=== PATIENT | male | born 1955 | race Caucasian/White ===

== ENCOUNTER → 2020-04-04 | Outpatient (CLI) | payer BC ==
--- NOTE | 2020-04-05 04:21 | CT ---
EXAMINATION TYPE: CT chest w con DATE OF EXAM: 04/04/2020 COMPARISON: No radiographic correlation available. HISTORY: 64-year-old male R91.8, ABN Xray. TECHNIQUE: Contiguous axial scanning of the chest after the administration of 100 mL of Isovue 300. Coronal/sagittal reconstructions performed. CT DLP: 503.80mGycm. Automatic exposure control utilized for a dose reduction. FINDINGS: Heart normal size with trace anterior basilar pericardial fluid. Borderline ectatic aortic root at 3.6 cm. Conventional arch vessel branching anatomy. Borderline to mildly enlarged caliber to the main right and left pulmonary arteries at 2.6 cm each ma y represent underlying pulmonary hypertension. No thoracic lymphadenopathy by CT size criteria. Trace bilateral gynecomastia. 4 mm subpleural pulmonary nodule posterior right upper lobe, axial image extending. Strandy bibasilar areas of atelectasis. No consolidation or pleural effusion. Visualized upper abdomen shows [id number] stool. Bones: No osseous destructive process. IMPRESSION: 1. Borderline to mildly enlarged caliber to the main right and left pulmonary arteries. Correlate for possible underlying pulmonary arterial hypertension. 2. A 4 mm pulmonary nodule on the right. 12 month follow-up CT can reassess. 3. Otherwise, no acute process seen. The exam can be reviewed with directed attention if the patient' s outside abnormal radiograph is made available.
== END | disposition home or self-care (01) ==
LOC: RADCTMAIN 15:51
PROVIDERS: ATTEND Family Medicine
DX: R91.1 Solitary pulmonary nodule (principal)
CPT/HCPCS: 71260; Q9967

== ENCOUNTER 2020-04-27 10:40 | Day surgery (SDC) | payer BC ==
[2020-04-24 15:35] VITALS: BMI 33.2
[~2020-04-27 10:40] MED LIST: LACTATED RINGERS 1,000 ML IV SCH
[2020-04-27] MEDS ORDERED: LIDOCAINE 1% (10MG/ML) FOR IV START INTRADERMA ONE (11:01)
[2020-04-27 11:14] VITALS: RESP 16; TEMP 97.6
[2020-04-27] MEDS ORDERED: PROPOFOL 10 MG/ML 20 ML VIAL IV ONE (12:22)
--- NOTE | 2020-04-27 12:25 | P.GSHP ---
History of Present Illness H&P Date: 04/27/20 Chief Complaint: Screening colonoscopy This a 64-year-old male who presents today for screening colonoscopy. Patient denies any significant GI complaints. Past Medical History Past Medical History: GERD/Reflux, Hyperlipidemia, Hypertension Additional Past Medical History / Comment(s): BACK PAIN History of Any Multi-Drug Resistant Organisms: None Reported Past Surgical History: Back Surgery Past Anesthesia/Blood Transfusion Reactions: No Reported Reaction, Motion Sickness Past Psychological History: No Psychological Hx Reported Smoking Status: Former smoker Past Alcohol Use History: Rare Additional Past Alcohol Use History / Comment(s): SMOKED AGE 17 TO 30 YRS OLD Past Drug Use History: None Reported - Past Family History Mother Family Medical History: Cancer Additional Family Medical History / Comment(s): LUNG CANCER Brother(s) Family Medical History: Cancer Additional Family Medical History / Comment(s): PROSTATE CANCER Medications and Allergies Home Medications Medication Instructions Recorded Confirmed Type Aspirin [Adult Low Dose Aspirin EC] 81 mg PO DAILY 04/24/20 04/27/20 History Atorvastatin [Lipitor] 40 mg PO DAILY 04/24/20 04/27/20 History Diclofenac Sodium/Misoprostol 1 each PO DAILY 04/24/20 04/27/20 History [Arthrotec 75 mg-200 Mcg Tab] Iron (Unknown Dose) 1 tab PO DAILY 04/24/20 04/27/20 History Lisinopril [Zestril] 10 mg PO DAILY 04/24/20 04/27/20 History Metaxalone [Skelaxin] 800 mg PO BID 04/24/20 04/27/20 History Multivit-Min/Folic/Vit K/Lycop 1 each PO DAILY 04/24/20 04/27/20 History [Men's Multivitamin Tablet] Omeprazole [PriLOSEC] 20 mg PO DAILY 04/24/20 04/27/20 History Allergies Allergy/AdvReac Type Severity Reaction Status Date / Time No Known Allergies Allergy Verified 04/24/20 15:10 Surgical - Exam Vital Signs Temp Pulse Resp BP Pulse Ox 97.6 F 115 H 16 131/77 96 04/27/20 10:51 04/27/20 10:51 04/27/20 10:51 04/27/20 10:51 04/27/20 10:51 - General well developed, well nourished, no distress - Eyes PERRL - ENT normal pinna - Neck no masses - Respiratory normal expansion - Cardiovascular Rhythm: regular - Abdomen Abdomen: soft, non tender Assessment and Plan Assessment: We'll perform screening colonoscopy.
--- NOTE | 2020-04-27 12:34 | P.OP ---
Date of Procedure: 04/27/20 Preoperative Diagnosis: Screening colonoscopy Postoperative Diagnosis: Normal colon Procedure(s) Performed: Colonoscopy Anesthesia: MAC Surgeon: Khurram Loredo Pathology: none sent Condition: stable Disposition: PACU Description of Procedure: PROCEDURE: The patient was placed on the endoscopy table in the lateral position. Digital rectal examination was performed which revealed no abnormalities. The prostate was symmetrical without nodules. Flexible colonoscope was then placed in the patient's anus and passed throughout the entire colon. The ileocecal valve was visualized. The cecum, ascending, transverse, descending and sigmoid colon were normal. The rectum was normal as well. There were no masses, polyps or diverticula noted in the entire colon. SUMMARY OF FINDINGS: Normal colonoscopy.
[2020-04-27 13:03] VITALS: BP 114/67; PULSE 80
== END 2020-04-27 13:06 | disposition home or self-care (01) ==
LOC: ORWHC2ENDO 10:40
PROVIDERS: ATTEND Surgery
DX: Z12.11 Encounter for screening for malignant neoplasm of colon (principal); I10 Essential (primary) hypertension; E78.5 Hyperlipidemia, unspecified; K21.9 Gastro-esophageal reflux disease without esophagitis; Z87.891 Personal history of nicotine dependence; Z98.890 Other specified postprocedural states; Z79.82 Long term (current) use of aspirin; Z79.899 Other long term (current) drug therapy; Z80.1 Family history of malignant neoplasm of trachea, bronchus and lung; Z80.42 Family history of malignant neoplasm of prostate
CPT/HCPCS: J2704; G0121

== ENCOUNTER → 2021-04-09 | Outpatient (CLI) | payer BC ==
[2021-04-09 16:20] LABS: African American GFR (CKD) >90 (>60 ml/min/1.73 sqM); Blood Urea Nitrogen 14 mg/dL (9-20); Non-African American GFR(CKD) >90 (>60 ml/min/1.73 sqM)
--- NOTE | 2021-04-09 20:29 | CT ---
EXAMINATION TYPE: CT chest w con DATE OF EXAM: 04/09/2021 COMPARISON: 04/04/2020 HISTORY: f/u nodules CT DLP: 559.9 mGycm Automated exposure control for dose reduction was used. TECHNIQUE: CT scan of the chest is performed with IV Contrast, patient injected with 100 mL of Isovue 300. MIP Images are created on CT scanner and reviewed. 3D reconstructed images are created on an independent workstation and reviewed. FINDINGS: LUNGS: The lungs are grossly clear, there is no concerning parenchymal mass or nodule identified. T here is no pleural effusion or pneumothorax seen. The tracheobronchial tree is patent. Table 4 mm no dule posterior segment right upper lobe subpleural unchanged from prior exam. Mild emphysematous corado ges noted. Subsegmental changes involving both lung bases suggestive of scar or atelectasis. MEDIASTINUM: There are no greater than 1 cm hilar or mediastinal lymph nodes. No pericardial effusi on is seen. Aorta of normal caliber with mild atherosclerotic changes. There is mild prominence to t he proximal pulmonary artery measuring 2.6 cm which could be associated with early pulmonary arterial hypertension. OTHER: Small hiatal hernia. Hypertrophic and degenerative change of the spine.. Trace gynecomastia i ncidentally noted. IMPRESSION: 1. Stable 4 mm subpleural nodule right upper lobe unchanged from prior exam and has a benign appearan ce.
== END | disposition home or self-care (01) ==
LOC: RADCTMAIN 15:25
PROVIDERS: ATTEND Family Medicine
DX: R91.1 Solitary pulmonary nodule (principal)
CPT/HCPCS: 82565; 84520; 71260; 36415; Q9967

== ENCOUNTER → 2022-03-13 | Outpatient (CLI) | payer BC ==
--- NOTE | 2022-03-13 17:21 | P.PN ---
Subjective DATE: 03/13/2022 FOLLOW UP VISIT. Patient with obstructive sleep apnea hypopnea syndrome return to sleep center for follow-up visit. Recently patient had sleep study which documented obstructive sleep apnea hypopnea syndrome. Patient was initiated on PAP therapy and today is first visit after treatment was started. Patient was able to use PAP equipment every night for the whole night. The patient does not have significant problems with the mask, PAP pressure and humidification. [place] sleepiness scale is 9. I checked information from PAP unit. PAP unit pressure 5-20 average 10.6 cm H2O. Usage is 93 % for more then 4 hours, average 6.3 hours per night. Leak is 6.8 l/m, which is in acceptable range. Apnea Hypopnea Index is 1.4, which is normal. MEDICATIONS:1. Lisinopril 10 mg once a day 2. Omeprazole 20 mg once a day 3. Atorvastatin 40 mg once a day During physical exam: GENERAL: A pleasant patient without any distress. VITAL SIGNS: BP 129/76, HR 96, RR 18 , weight 247.8, temperature 97.6, oxygen saturation at room air 95% . HEENT: PERRLA, EOMI.low position of soft palate, Mallapati 3-4 . NECK: Supple. No JVD. LUNGS: Clear to percussion and to auscultation. Good air exchange. No wheezing or rhonchi. HEART: S1, S2 regular. ABDOMEN: Soft and nontender.[] EXTREMITIES: No clubbing or cyanosis. RUBBER STAMP DIE INSPECTOR: Awake, alert, and oriented x3. No focal deficit. Impressions: 1. Obstructive sleep apnea-hypopnea syndrome. Patient demonstrated great compliance with treatment, benefiting from treatment. 2. Hypertension. 3. Hyperlipidemia. 4. Acid reflux. 5. Back problems. 6. Status post back surgery. Plan: 1. Continue using PAP equipment every night for the whole night. Patient will try nasal pillow mask. 2. To change air filter at least 1-2 times per month. 3. PAP unit should stay lower then position of the head. 4. Advised patient to remove all remaining water from humidifier canister daily and make it dry after each usage. Refill canister with fresh distilled water before each usage. 5. Sleep hygiene with regular time in bed for at least 8 hours. 6. Precautions related to driving. No driving if feel any sleepiness. 7. I will maintain prescription for PAP supplies including mask, tube, filters. 8. Follow up visit in 6 months or earlier if patient has any problems. 9. Watching weight. Thank you very much for allowing me to participate in the management of your patient. Nagi Angel MD, PhD, FAASM. Diplomat of [place] [employer], Sleep Medicine Board by [employer] Transfer Car Operator Drier of [facility] [place]
== END ==
LOC: SLEEP 16:06
PROVIDERS: ATTEND Internal Medicine
DX: G47.33 Obstructive sleep apnea (adult) (pediatric) (principal); I10 Essential (primary) hypertension; E78.5 Hyperlipidemia, unspecified; K21.9 Gastro-esophageal reflux disease without esophagitis; M53.80 Other specified dorsopathies, site unspecified; Z98.890 Other specified postprocedural states; Z99.89 Dependence on other enabling machines and devices

== ENCOUNTER → 2022-12-18 | Outpatient (CLI) | payer MEDICARE, BC ==
--- NOTE | 2022-12-18 14:00 | P.PN ---
Subjective DATE: 12/18/2022 FOLLOW UP VISIT. Patient with obstructive sleep apnea hypopnea syndrome return to sleep center for follow-up visit. Information from previous visit have been reviewed. Patient is using PAP equipment every night for the whole night, getting PAP supplies in time. Patient has discomfort in the nose secondary to nasal pillows. [place] sleepiness scale is 5, which is normal. I checked information from PAP unit. PAP unit pressure 5-20, average 12.7 cm H2O. Usage is 100 % for more then 4 hours, average 6.5 hours per night. Leak is to 13.3 l/m, which is in acceptable range. Apnea Hypopnea Index is 1.6, which is normal. MEDICATIONS:1. Lisinopril 10 mg once a day 2. Atorvastatin 40 mg once a day 3. Omeprazole 20 mg once a day 4. Alprazolam 0.25 mg as needed During physical exam: GENERAL: A pleasant patient without any distress. VITAL SIGNS: BP 125/72, HR 76, RR 16 , weight 260.4, temperature 97.3, oxygen saturation at room air 94 % . HEENT: PERRLA, EOMI.low position of soft palate, Mallapati 34 . NECK: Supple. No JVD. LUNGS: Clear to percussion and to auscultation. Good air exchange. No wheezing or rhonchi. HEART: S1, S2 regular. ABDOMEN: Soft and nontender.[] EXTREMITIES: No clubbing or cyanosis. SOLE DYER: Awake, alert, and oriented x3. No focal deficit. Impressions: 1. Obstructive sleep apnea-hypopnea syndrome. Patient demonstrated great compliance with treatment, benefiting from treatment. 2. Hypertension. 3. Acid reflux. 4. Back problems. 5. Status post back surgery. I teach patient how to adjust humidity and temperature in the tube. Humidity level was adjusted up from 3 to 5. Plan: 1. Continue using PAP equipment every night for the whole night. Patient will try different sizes of nasal pillows and [place] gel to the nose. 2. To change air filter at least 1-2 times per month. 3. PAP unit should stay lower then position of the head. 4. Advised patient to remove all remaining water from humidifier canister daily and make it dry after each usage. Refill canister with fresh distilled water before each usage. 5. Sleep hygiene with regular time in bed for at least 8 hours. 6. Precautions related to driving. No driving if feel any sleepiness. 7. I will maintain prescription for PAP supplies including mask, tube, filters. 8. Watching weight. 9. Follow up visit in 6 months or earlier if patient has any problems. Thank you very much for allowing me to participate in the management of your patient. Nagi Angel MD, PhD, FAASM. Diplomat of [place] [employer], Sleep Medicine Board by [place] [employer] Paleologist of [facility] [place]
== END ==
LOC: 3 N SLEEP 13:17
PROVIDERS: ATTEND Internal Medicine
DX: G47.33 Obstructive sleep apnea (adult) (pediatric) (principal); I10 Essential (primary) hypertension; K21.9 Gastro-esophageal reflux disease without esophagitis; M54.50 Low back pain, unspecified; Z98.890 Other specified postprocedural states; Z79.899 Other long term (current) drug therapy; Z99.89 Dependence on other enabling machines and devices
CPT/HCPCS: 99212

== ENCOUNTER → 2023-07-16 | Outpatient (CLI) | payer MEDICARE ==
--- NOTE | 2023-07-16 13:44 | P.PN ---
Subjective DATE: 07/16/2023 FOLLOW UP VISIT. Patient with obstructive sleep apnea hypopnea syndrome return to sleep center for follow-up visit. Information from previous visit have been reviewed. Patient is using PAP equipment every night for the whole night, getting PAP supplies in time. The patient does not have significant problems with the mask, PAP unit and humidification. [place] sleepiness scale is 6. I checked information from PAP unit. PAP unit pressure 5-17, average 12.2 cm H2O. Usage is 90% for more then 4 hours, average 6.7 hours per night. Leak is 16 l/m, which is in acceptable range. Apnea Hypopnea Index is 1.5, which is normal. MEDICATIONS:1. Omeprazole 20 mg once a day 2. Lisinopril 10 mg once a day 3. Celecoxib 200 mg once a day 4. Atorvastatin 40 mg once a day During physical exam: GENERAL: A pleasant patient without any distress. VITAL SIGNS: BP 145/74, HR 78, RR 12, weight 258.8, temperature 97.8, oxygen saturation at room air[] 97 % . HEENT: PERRLA, EOMI.low position of soft palate, Mallapati 3-4 . NECK: Supple. No JVD. LUNGS: Clear to percussion and to auscultation. Good air exchange. No wheezing or rhonchi. HEART: S1, S2 regular. ABDOMEN: Soft and nontender. EXTREMITIES: No clubbing or cyanosis. MANAGER RESEARCH: Awake, alert, and oriented x3. No focal deficit. Impressions: 1. Obstructive sleep apnea-hypopnea syndrome. Patient demonstrated great compliance with treatment, benefiting from treatment. 2. Hypertension. 3. Back problems. 4. Status post back surgery . 5. Acid reflux. 6. Mild obesity, BMI 34.9 Plan: 1. Continue using PAP equipment every night for the whole night. 2. To change air filter at least 1-2 times per month. 3. PAP unit should stay lower then position of the head. 4. Advised patient to remove all remaining water from humidifier canister daily and make it dry after each usage. Refill canister with fresh distilled water before each usage. 5. Sleep hygiene with regular time in bed for at least 8 hours. 6. Precautions related to driving. No driving if feel any sleepiness. 7. I will maintain prescription for PAP supplies including mask, tube, filters. 8. Follow up visit in 6 months or earlier if patient has any problems. 9. Watching and losing weight. Thank you very much for allowing me to participate in the management of your patient. Nagi Angel MD, PhD, FAASM. Diplomat of [place] [employer] Sleep Medicine, Sleep Medicine Board by [place] [employer] Medicine Clean In Places Operator of [facility] [place]
== END ==
LOC: 3 N SLEEP 13:12
PROVIDERS: ATTEND Internal Medicine
DX: G47.33 Obstructive sleep apnea (adult) (pediatric) (principal); I10 Essential (primary) hypertension; E66.9 Obesity, unspecified; K21.9 Gastro-esophageal reflux disease without esophagitis; M51.9 Unspecified thoracic, thoracolumbar and lumbosacral intervertebral disc disorder; Z98.890 Other specified postprocedural states; Z68.34 Body mass index [BMI] 34.0-34.9, adult; Z99.89 Dependence on other enabling machines and devices; Z79.899 Other long term (current) drug therapy; Z79.82 Long term (current) use of aspirin
CPT/HCPCS: 99212

== ENCOUNTER → 2024-02-25 | Outpatient (CLI) | payer MEDICARE ==
[2024-02-25 13:38] VITALS: BP 121/62; PULSE 77; RESP 16; TEMP 97
--- NOTE | 2024-02-25 13:59 | P.PROGSL ---
Subjective DATE: 02/25/2024 FOLLOW UP VISIT. Patient with obstructive sleep apnea hypopnea syndrome return to sleep center for follow-up visit. Information from previous visit have been reviewed. Patient is using PAP equipment every night for the whole night, getting PAP supplies in time. The patient does not have significant problems with the mask, PAP unit and humidification. [place] sleepiness scale is 3, which is normal. I checked information from PAP unit. PAP unit pressure 5-17, average 10.9, maximum 13.2 cm H2O. Usage is 95% for more then 4 hours, average 7.10 hours per night. Leak is slightly increased to 26.2 l/m. Apnea Hypopnea Index is 1.3, which is normal. MEDICATIONS have been reviewed, please see below. During physical exam: GENERAL: A pleasant patient without any distress. VITAL SIGNS: Please see below, weight is 269 lbs. HEENT: PERRLA, EOMI.low position of soft palate, Mallapati 34. NECK: Supple. No JVD. LUNGS: Clear to percussion and to auscultation. Good air exchange. No wheezing or rhonchi. HEART: S1, S2 regular. ABDOMEN: Soft and nontender. Slightly obese EXTREMITIES: No clubbing or cyanosis. TRUCK BENCH MECHANIC: Awake, alert, and oriented x3. No focal deficit. Impressions: 1. Obstructive sleep apnea-hypopnea syndrome. Patient demonstrated great compliance with treatment, benefiting from treatment. 2. Obesity, BMI 35.7, patient increased weight on 10 pounds comparing with previous visit. 3. Hypertension. 4. Back problems. 5. Status post back surgery. 6. Acid reflux. Plan: 1. Continue using PAP equipment every night for the whole night. 2. Sleep hygiene with regular time in bed for at least 7.5-8 hours 3. PAP unit should stay lower then position of the head. 4. Advised patient to remove all remaining water from humidifier canister daily and make it dry after each usage. Refill canister with fresh distilled water before each usage. 5. Watching weight. 6. Precautions related to driving. No driving if feel any sleepiness. 7. I will maintain prescription for PAP supplies including mask, tube, filters. 8. Follow up visit in 6 months or earlier if patient has any problems. Thank you very much for allowing me to participate in the management of your patient. Nagi Angel MD, PhD, FAASM. Diplomat of [place] [employer] Sleep Medicine, Sleep Medicine Board by [place] [employer] Medicine Model And Mold Maker of [facility] [place] Objective - Vital Signs Vital Signs: Vital Signs Temp 97 F L 02/25/24 13:37 Pulse 77 02/25/24 13:37 Resp 16 02/25/24 13:37 BP 121/62 02/25/24 13:37 Pulse Ox 95 02/25/24 13:37 FiO2 Intake & Output 02/24/24 02/25/24 02/25/24 18:59 06:59 18:59 Weight 122.016 kg Home Medications: Home Medications Medication Instructions Recorded Confirmed Type Aspirin [Adult Low Dose Aspirin EC] 81 mg PO DAILY 04/24/20 02/25/24 History Atorvastatin [Lipitor] 40 mg PO DAILY 04/24/20 02/25/24 History Iron (Unknown Dose) 1 tab PO DAILY 04/24/20 02/25/24 History Multivit-Min/Folic/Vit K/Lycop 1 each PO DAILY 04/24/20 02/25/24 History [Men's Multivitamin Tablet] Omeprazole [PriLOSEC] 20 mg PO DAILY 04/24/20 02/25/24 History lisinopriL [Zestril] 10 mg PO DAILY 04/24/20 02/25/24 History ALPRAZolam [Xanax] 0.25 mg PO DAILY PRN 02/25/24 02/25/24 History Celecoxib [CeleBREX] 200 mg PO DAILY 02/25/24 02/25/24 History lisinopriL [Zestril] 10 mg PO DAILY 02/25/24 02/25/24 History tadalafiL [Cialis] 5 mg PO DAILY 02/25/24 02/25/24 History
== END ==
LOC: 3 N SLEEP 13:04
PROVIDERS: ATTEND Internal Medicine
CPT/HCPCS: 99212

== ENCOUNTER → 2024-11-03 | Outpatient (CLI) | payer MEDICARE ==
[2024-11-03 13:22] VITALS: BP 133/74; PULSE 75; RESP 18; TEMP 98.2
--- NOTE | 2024-11-03 13:50 | P.PROGSL ---
Subjective DATE: 11/03/2024 FOLLOW UP VISIT. Patient with obstructive sleep apnea hypopnea syndrome return to sleep center for follow-up visit. Information from previous visit have been reviewed. Patient is using PAP equipment every night for the whole night, getting PAP supplies in time. The patient does not have significant problems with the mask, PAP unit and humidification. [place] sleepiness scale is 5, which is normal. I checked information from PAP unit. PAP unit pressure 5-17, average 12.4 cm H2O. Usage is 87% for more then 4 hours, average 6.5 hours per night. Leak is 7.8 l/m, which is in acceptable range. Apnea Hypopnea Index is 1.3, which is normal. MEDICATIONS have been reviewed, please see below. During physical exam: GENERAL: A pleasant patient without any distress. VITAL SIGNS: Please see below, weight is 266.6 lbs. HEENT: PERRLA, EOMI.low position of soft palate, Mallapati 34. NECK: Supple. No JVD. LUNGS: Clear to percussion and to auscultation. Good air exchange. No wheezing or rhonchi. HEART: S1, S2 regular. ABDOMEN: Soft and nontender.[] EXTREMITIES: No clubbing or cyanosis. AIRPLANE NAVIGATOR: Awake, alert, and oriented x3. No focal deficit. Impressions: 1. Obstructive sleep apnea-hypopnea syndrome. Patient demonstrated great compliance with treatment, benefiting from treatment. 2. Obesity BMI 37.0. 3. Hypertension. 4. Back problems. 5. Acid reflux. Plan: 1. Continue using PAP equipment every night for the whole night. 2. Sleep hygiene with regular time in bed for at least 7.5-8 hours 3. PAP unit should stay lower then position of the head. 4. Advised patient to remove all remaining water from humidifier canister daily and make it dry after each usage. Refill canister with fresh distilled water before each usage. 5. Watching and losing weight. 6. Precautions related to driving. No driving if feel any sleepiness. 7. I will maintain prescription for PAP supplies including mask, tube, filters. 8. Follow up visit in 8 months or earlier if patient has any problems. Thank you very much for allowing me to participate in the management of your patient. Nagi Angel MD, PhD, FAASM. Diplomat of [place] [employer] Sleep Medicine, Sleep Medicine Board by [place] [employer] Medicine Lumber Stacker Driver of [facility] [place] Objective - Vital Signs Vital Signs: Vital Signs Temp 98.2 F 11/03/24 13:19 Pulse 75 11/03/24 13:19 Resp 18 11/03/24 13:19 BP 133/74 11/03/24 13:19 Pulse Ox 95 11/03/24 13:19 FiO2 Intake & Output 11/02/24 11/03/24 11/03/24 18:59 06:59 18:59 Weight 120.769 kg Home Medications: Home Medications Medication Instructions Recorded Confirmed Type Aspirin [Adult Low Dose Aspirin EC] 81 mg PO DAILY 04/24/20 02/25/24 History Atorvastatin [Lipitor] 40 mg PO DAILY 04/24/20 11/03/24 History Iron (Unknown Dose) 1 tab PO DAILY 04/24/20 02/25/24 History Multivit-Min/Folic/Vit K/Lycop 1 each PO DAILY 04/24/20 02/25/24 History [Men's Multivitamin Tablet] Omeprazole [PriLOSEC] 20 mg PO DAILY 04/24/20 11/03/24 History lisinopriL [Zestril] 10 mg PO DAILY 04/24/20 02/25/24 History ALPRAZolam [Xanax] 0.25 mg PO DAILY PRN 02/25/24 02/25/24 History Celecoxib [CeleBREX] 200 mg PO DAILY 02/25/24 11/03/24 History lisinopriL [Zestril] 10 mg PO DAILY 02/25/24 11/03/24 History tadalafiL [Cialis] 5 mg PO DAILY 02/25/24 02/25/24 History
== END ==
LOC: 3 N SLEEP 12:58
PROVIDERS: ATTEND Internal Medicine
DX: G47.33 Obstructive sleep apnea (adult) (pediatric) (principal); E66.9 Obesity, unspecified; I10 Essential (primary) hypertension; K21.9 Gastro-esophageal reflux disease without esophagitis; Z68.37 Body mass index [BMI] 37.0-37.9, adult; Z99.89 Dependence on other enabling machines and devices
CPT/HCPCS: 99212